=== PATIENT | female | born 1955 | race African-American/Black ===

== ENCOUNTER 2018-12-13 11:38 | Outpatient (CLI) | payer BC ==
--- NOTE | 2018-12-13 12:58 | RAD ---
LEFT KNEE FOUR VIEWS: HISTORY: Left knee pain. FINDINGS: Joint spaces are preserved. Very mild osteophytosis. No acute fracture, dislocation, or fluid diste ntion of the suprapatellar bursa. IMPRESSION: No acute osseous abnormalities demonstrated. POS: [facility]
== END 2018-12-13 11:39 | disposition home or self-care (01) ==
LOC: RAD-FRANK 11:38
PROVIDERS: ATTEND Internal Medicine
DX: S89.92XA Unspecified injury of left lower leg, initial encounter (principal)